=== PATIENT | female | born 1985 | race Caucasian/White ===

== ENCOUNTER 2017-02-05 12:48 | Emergency (ER) | payer MEDICAID ==
[~2017-02-05] VITALS: Ht 154.9 cm; Wt 97.2 kg
[2017-02-05 15:44] VITALS: BP 131/86
== END 2017-02-05 15:45 | disposition home or self-care (01) ==
LOC: EMS 12:51
DX: I83.893 Varicose veins of bilateral lower extremities with other complications (principal); R60.0 Localized edema
CPT/HCPCS: 93970; 99284